=== PATIENT | female | born 1960 | race Caucasian/White ===

== ENCOUNTER 2017-12-10 23:21 | Emergency (ER) | payer BC ==
[~2017-12-10] VITALS: Ht 188 cm; Wt 74.8 kg
[2017-12-10 23:25] VITALS: Ht 188 cm; Wt 74.8 kg
[2017-12-11 00:01] LABS: BASOPHIL % 0.2 % (0-2); PLATELET COUNT 318 x10^3mcL (130-400); RED CELL DISTRIBUTION WIDTH 12.8 % (11.5-14.5)
[2017-12-11 00:13] LABS: CALCIUM 9.3 mg/dL (8.5-10.1); CARBON DIOXIDE 22.6 mmol/L (21-32); CHLORIDE SERUM 103 mmol/L (98-107); CREATININE SERUM 0.9 mg/dL (0.6-1.0); GFR1 > 60 mL/min; GLUCOSE SERUM 160 mg/dL (74-106); POTASSIUM SERUM 3.4 mmol/L (3.5-5.1); SODIUM SERUM 142 mmol/L (136-145)
[2017-12-11 00:21] LABS: ALBUMIN 4.1 g/dL (3.4-5.0); ALKALINE PHOSPHATASE 87 U/L (46-116); ALT/SGPT 44 U/L (14-59); AST/SGOT 22 U/L (15-37); BILIRUBIN TOTAL 0.5 mg/dL (0.20-1.00); HDL CHOLESTEROL 44 mg/dL (40-60); LIPASE 288 IU/L (73-393); TOTAL PROTEIN, SERUM 7.4 g/dL (6.4-8.2)
[2017-12-11 00:22] LABS: T3 TOTAL 0.7 ng/mL
[2017-12-11 00:23] LABS: CHOLESTEROL 269 mg/dL (<200); CHOLESTEROL/HDL RATIO 6.1; TRIGLYCERIDES 201 mg/dL (<150)
[2017-12-11 00:46] LABS: FREE T4 0.91 ng/dL (0.76-1.46); FREE THYROXINE INDEX 2.4 ug/dL (1.4-4.5); T4(THYROXINE) 7.5 ug/dL (4.7-13.3)
[2017-12-11 02:42] VITALS: BP 121/76
== END 2017-12-11 02:42 | disposition home or self-care (01) ==
LOC: ED 23:21
PROVIDERS: Specialist
DX: R10.11 Right upper quadrant pain (principal); R10.12 Left upper quadrant pain; R10.13 Epigastric pain; Z85.89 Personal history of malignant neoplasm of other organs and systems; Z90.89 Acquired absence of other organs
CPT/HCPCS: 83880; 84439; J1885; J2405; J3010; J7030; Q0092